=== PATIENT | male | born 1940 | race Caucasian/White ===

== ENCOUNTER 2017-02-11 12:34 | Day surgery (SDC) | payer OTHER, BC ==
[2017-02-11] MEDS ORDERED: TETRACAINE 0.5% OPHTH 1 DOSE AFFEYE ONE ×6 (13:00→15:46)
[2017-02-11] MEDS ORDERED: VIGAMOX 0.5% OPHTH 1 DOSE AFFEYE ONE ×5 (13:05→15:59)
[2017-02-11] MEDS ORDERED: NS 500 ML IV 500 ML IV ONE (13:07)
[2017-02-11] MEDS ORDERED: PROLENSA OPHTH 1 DOSE AFFEYE ONE (13:16)
[2017-02-11] MEDS ORDERED: ALPHAGAN-P OPHTH 1 DOSE AFFEYE ONE (13:17)
[2017-02-11] MEDS ORDERED: AK-DILATE 2.5% OPHTH 1 DOSE OP ONE ×3 (13:18→13:20)
[2017-02-11] MEDS ORDERED: CYCLOGYL 1% OPHTH 1 DOSE OP ONE ×3 (13:18→13:20)
[2017-02-11] MEDS ORDERED: MYDRIACIL OPHTH 1 DOSE AFFEYE ONE ×3 (13:18→13:20)
[2017-02-11] MEDS: VERSED ONE ×3 (14:51→15:21)
[2017-02-11] MEDS ORDERED: AK-DILATE 10% OPHTH 1 DOSE AFFEYE ONE ×3 (14:51→15:20)
[2017-02-11] MEDS ORDERED: BETADINE OPHTH SOLN 5% EACHEYE ONE (15:30)
[2017-02-11] MEDS ORDERED: DUOVISC IO ONE ×2 (15:41→15:46)
[2017-02-11] MEDS ORDERED: ADRENALINE CHL INJ IJ ONE ×2 (15:41→15:46)
[2017-02-11] MEDS ORDERED: XYLOCAINE-MPF 1% IJ ONE ×2 (15:41→15:46)
[2017-02-11] MEDS ORDERED: BSS OPHTH (PLAIN) 500 ML with VANCOMYCIN HCL 500 MG VIAL 25 MG, ADRENALINE CHL INJ 1 MG IR ONE ×6 (15:42)
[2017-02-11 16:43] VITALS: BP 167/78
== END 2017-02-11 16:25 | disposition home or self-care (01) ==
LOC: SURG1 12:34
PROVIDERS: ATTEND Ophthalmology
PROC: 08DJ3ZZ Extraction of Right Lens, Percutaneous Approach (ICD-10-PCS; principal; 2017-02-11 18:00)
PROC: 08J0XZZ Inspection of Right Eye, External Approach (ICD-10-PCS; principal; 2017-02-11 18:00)
PROC: 08RJ3JZ Replacement of Right Lens with Synthetic Substitute, Percutaneous Approach (ICD-10-PCS; principal; 2017-02-11 18:00)
DX: H25.11 Age-related nuclear cataract, right eye (principal); H52.221 Regular astigmatism, right eye
CPT/HCPCS: 99100; V2797; A4217; J0170; J2250; J3370

== ENCOUNTER 2017-03-18 07:25 | Day surgery (SDC) | payer OTHER, BC ==
[2017-03-18] MEDS ORDERED: TETRACAINE 0.5% OPHTH 1 DOSE AFFEYE ONE ×7 (07:30→11:15)
[2017-03-18] MEDS ORDERED: VIGAMOX 0.5% OPHTH 1 DOSE AFFEYE ONE ×5 (07:35→11:20)
[2017-03-18] MEDS ORDERED: PROLENSA OPHTH 1 DOSE AFFEYE ONE (07:46)
[2017-03-18] MEDS ORDERED: ALPHAGAN-P OPHTH 1 DOSE AFFEYE ONE (07:47)
[2017-03-18] MEDS ORDERED: MYDRIACIL OPHTH 1 DOSE AFFEYE ONE ×3 (07:48→07:50)
[2017-03-18] MEDS ORDERED: AK-DILATE 2.5% OPHTH 1 DOSE OP ONE ×3 (07:48→07:50)
[2017-03-18] MEDS ORDERED: CYCLOGYL 1% OPHTH 1 DOSE OP ONE ×3 (07:48→07:50)
[2017-03-18] MEDS ORDERED: NS 500 ML IV 500 ML IV ONE (08:06)
[2017-03-18] MEDS ORDERED: ALCAINE or OPHTHETIC AFFEYE ONE (10:03)
[2017-03-18] MEDS ORDERED: VERSED ONE (10:03)
[2017-03-18] MEDS ORDERED: AK-DILATE 10% OPHTH 1 DOSE AFFEYE ONE ×2 (10:43→10:49)
[2017-03-18] MEDS ORDERED: ALCAINE or OPHTHETIC 1 DOSE AFFEYE ONE (10:45)
[2017-03-18] MEDS ORDERED: VERSED IVP ONE ×2 (10:45)
[2017-03-18] MEDS ORDERED: BETADINE OPHTH SOLN 5% EACHEYE ONE ×2 (11:00→11:15)
[2017-03-18] MEDS ORDERED: ADRENALINE CHL INJ IJ ONE ×2 (11:04→11:17)
[2017-03-18] MEDS ORDERED: DUOVISC IO ONE ×2 (11:05→11:17)
[2017-03-18] MEDS ORDERED: XYLOCAINE-MPF 1% IJ ONE ×2 (11:05→11:17)
[2017-03-18] MEDS ORDERED: BSS OPHTH (PLAIN) 500 ML with VANCOMYCIN HCL 500 MG VIAL 25 MG, ADRENALINE CHL INJ 1 MG IR ONE ×6 (11:06)
[2017-03-18 12:21] VITALS: BP 142/76
== END 2017-03-18 11:56 | disposition home or self-care (01) ==
LOC: SURG1 07:25
PROVIDERS: ATTEND Ophthalmology
PROC: 08RJ3JZ Replacement of Right Lens with Synthetic Substitute, Percutaneous Approach (ICD-10-PCS; principal; 2017-03-18 12:00)
PROC: 08DJ3ZZ Extraction of Right Lens, Percutaneous Approach (ICD-10-PCS; principal; 2017-03-18 12:00)
DX: H25.11 Age-related nuclear cataract, right eye (principal); H52.221 Regular astigmatism, right eye
CPT/HCPCS: 99100; V2797; A4217; J0170; J2250; J3370